=== PATIENT | female | born 1930 | race Caucasian/White ===

== ENCOUNTER 2016-11-25 08:19 | Outpatient (CLI) | payer MEDICARE ==
[~2016-11-25] VITALS: Ht 165.1 cm; Wt 57.7 kg
--- NOTE | ~2016-11-25 | HEMODYNAMI ---
PATIENT:JUDAH CARVAJAL MEDICAL RECORD: [id number] : [birth year] LOCATION:[facility] ADMISSION DATE: 11/25/16 Generatedon:11/25/201613:07 Patient name: JUDAH CARVAJAL Patient #: [id number] SSN: DO B: 1930 Date of study: 11/25/2016 Page: Of Hemodynamic Procedure Report Patient Data Patient Demographics Procedure consent was obtained First Name: JUDAH Gender: Female Last Name: WEI : 1930 [facility] Initial: C Age: 86 year(s) Patient #: [id number] Race: Unknown Additional ID: [id number] Contact details [address]: [address] [place] [address] [id number] State: [place] City: [place] Zip code: [address] Admission Admission Data Admission Date: 11/25/2016 Admission Time: 8:19 Procedure Procedure Types Cath Procedure Diagnostic Procedure LHC [facility] w/Coronaries PCI Procedure Coronary Stent Initial Miscellaneous Procedures Moderate Sedation up to 15 minutes Procedure Description Procedure Date Procedure Date: 11/25/2016 Procedure Start Time: 12:46 Procedure End Time: 13:07 Procedure Staff Name Function Lito Merchant MD Performing Physician Ace Forde RT Scrub Tawanna Rico RN Nurse Jayme Hilario RT Monitor David Torres RN Assembler Installer General Procedure Data Cath Procedure Fluoroscopy Diagnostic fluoroscopy Total fluoroscopy Time: 4.2 time: 4.2 min min Diagnostic fluoroscopy Total fluoroscopy dose: 356 dose: 356 mGy mGy Contrast Material Contrast Material Type Amount (ml) Isovue 300 102 Entry Location Entry Primary Successful Side Size Upsize Upsize Entry Closure Succes sful Closure Location (Fr) 1 (Fr) 2 (Fr) Remarks Device Remarks Femoral Right 5 Fr 6 Fr 6 Fr Exoseal artery Short Short Estimated blood loss: 10 ml Diagnostic catheters Device Type Used For End Catheter Placement Cordis 5Fr Pigtail Procedure Catheter (MP) Cordis 5Fr JL 4.0 Procedure Catheter (MP) Cordis 5Fr 3DRC Catheter Procedure (MP) Procedure Complications No complications Procedure Medications Medication Administration Route Dosage Oxygen NC 2 l/min Heparin Flush Bag added to field 2 bags (1000units/500ml NS) Lidocaine 2% added to field 20 Versed I.V. 1 mg Fentanyl I.V. 50 mcg Versed I.V. 1 mg Fentanyl I.V. 50 mcg Heparin Bolus I.V. 4000 units Hemodynamics Rest Heart Rate: 58 (bpm) Snapshots Pre Cath Intra NCS Post Cath Vital Signs Time Heart Resp SPO2 NIBP (mmHg) Rhythm Pain Sedation Rate (ipm) (%) Status Level (bpm) 12:35:19 79 20 96 155/74(117) NSR 0 (11) 10(A) , No pain 12:40:19 56 14 98 Measuring NSR 0 (11) 10(A) , No pain 12:40:53 60 18 97 150/71(93) NSR 0 (11) 10(A) , No pain 12:45:18 57 18 96 143/63(102) NSR 0 (11) 10(A) , No pain 12:49:34 61 16 98 138/77(116) NSR 0 (11) 9(A) , No pain 12:53:51 60 18 95 138/65(120) NSR 0 (11) 9(A) , No pain 12:58:08 62 19 96 122/69(105) NSR 0 (11) 9(A) , No pain 13:02:17 60 19 96 124/70(112) NSR 0 (11) 9(A) , No pain 13:06:29 62 9 93 135/68(111) NSR 0 (11) 9(A) , No pain Medications Time Medication Route Dose Verified Delivered Reason Notes Effectiveness by by 12:38:02 Oxygen NC 2 Lito Tawanna Per physician l/min Shonda Rico RN 12:38:11 Heparin Flush added 2 Lito Morse used for Bag to bags Shonda Merchant MD procedure (1000units/500ml field NS) 12:38:18 Lidocaine 2% added 20ml Lito Morse used for to vial Shonda Merchant MD procedure field 12:41:21 Versed I.V. 1 mg Lito Tawanna for sedation Shonda Rico RN 12:41:34 Fentanyl I.V. 50 Lito Tawanna for sedation mcg Tauth MD Jacky RN 12:43:59 Versed I.V. 1 mg Lito Tawanna for sedation Shonda Rico RN 12:44:07 Fentanyl I.V. 50 Lito Tawanna for sedation mcg Shonda Rico RN 12:54:06 Heparin Bolus I.V. 4000 Lito Stacy for dose units Shonda Rico RN anticoagulation verified wt dr merchant Procedure Log Time Note 12:15:48 David Torres RN sent for patient. Start room use. 12:24:43 ACC Patient presents with Stable Angina CCS Anginal Class 2--Slight limitation of ordinary activity. 12:24:45 Diagnostic Cath status Elective 12:25:03 Time tracking: Regular hours 12:25:08 Plan of Care:Hemodynamics will remain stable., Cardiac rhythm will remain stable., Comfort level will be maintained., Respiratory function will remain adequate., Patient/ family verbilizes understanding of procedure., Procedure tolerated without complication., Recovers from procedure without complications.. 12:27:45 H&P Date Dictated: 11/18/2016 Within 30 days and on chart., H&P Addendum completed by physician on day of procedure. (MUST COMPLETE FOR ALL OUTPATIENTS). 12:31:34 Patient received from Pre/Post Procedure Room to CCL 2 Alert and oriented. Tansferred to table in Supine position. 12:31:35 Warm blankets applied, and moon hugger turned on for patient comfort. 12:31:36 Correct patient and procedure confirmed by team. 12:31:37 Signed procedure consent form obtained from patient. 12:31:38 ECG and BP/O2 sat monitors applied to patient. 12:33:56 Vital chart was started 12:38:02 Oxygen 2 l/min NC was administered by Tawanna Rico RN; Per physician; 12:38:11 Heparin Flush Bag (1000units/500ml NS) 2 bags added to field was administered by Lito Merchant MD; used for procedure; 12:38:18 Lidocaine 2% 20ml vial added to field was administered by Lito Merchant MD; used for procedure; 12:40:21 Baseline sample Acquired. 12:40:24 Rhythm: sinus bradycardia 12:40:26 Full Disclosure recording started 12::27 Pre-procedure instructions explained to patient. 12:40:27 Pre-op teaching completed and patient verbalized understanding. 12:40:29 Family in patients room. 12:40:30 Patient NPO since Midnight. 12:40:31 Is the patient allergic to Iodine/contrast media? No. 12:40:36 Is patient on blood thinner?Yes 12:40:38 ACC The patient was administered the following blood thiners within the last 24 hours: ACCPlavix 12:40:41 Patient diabetic? No. 12:40:43 Patient not . Patient is over age 55. 12:40:46 Previous problem with sedation/anesthesia? No ? 12:40:47 Snore? Yes 12:40:48 Sleep apnea? Yes 12:40:48 Deviated septum? No 12:40:49 Opens mouth fully? Yes 12:40:50 Sticks out tongue? Yes 12:40:52 Airway obstruction? No ? 12:40:53 Dentures? No ? 12:40:57 Pre procedure: right dorsailis pedis pulse 1+ Palpable, but thready & weak; easily obliterated 12:40:59 Patient pain scale 0/10 ?. 12:41:04 IV patent on arrival in left forearm with 0.9% NaCl at [facility]. 12:41:07 Lab results completed and on chart. 12:41:11 Right groin area was prepped with chlora-prep and draped in sterile fashion 12:41:12 Alarms reviewed by R. N. 12:41:12 Sharps counted by scrub and verified by R.N. 12:41:13 --------ALL STOP TIME OUT------ 12:41:13 Final Timeout: patient, procedure, and site verified with staff and physician. All members of the team are in agreement. 12:41:15 Right groin site verified by team. 12:41:18 Physical assessment completed. ASA score P 2 - A patient with mild systemic disease as per Lito Merchant MD. 12:41:21 Versed 1 mg I.V. was administered by Tawanna Rico RN; for sedation; 12:41:21 Sedation plan: IV Moderate Sedation Versed, Fentanyl 12:41:34 Fentanyl 50 mcg I.V. was administered by Tawanna Rico RN; for sedation; 12:41:36 Use device set Femoral Dx 12:41:38 Tegaderm 4 x 4 opened to sterile field. 12:41:38 Acist Hand Control opened to sterile field. 12:41:39 Acist Manifold opened to sterile field. 12:41:40 Acist Syringe opened to sterile field. 12:41:41 Bag Decanter opened to sterile field. 12:41:41 Medline Cath Pack opened to sterile field. 12:41:42 Terumo 5Fr [place] Sheath opened to sterile field. 12:41:42 St Mamadou 260cm J .035 wire opened to sterile field. 12:41:52 Diagnostic Infinity 5Fr Multipack catheter opened to sterile field. 12:43:59 Versed 1 mg I.V. was administered by Tawanna Rico RN; for sedation; 12:44:07 Fentanyl 50 mcg I.V. was administered by Tawanna Rico RN; for sedation; 12:44:16 Zero performed for pressure channel P1 12:46:33 Procedure started. 12:46:37 Local anesthetic to right femoral artery with Lidocaine 2% by Lito Merchant MD.INITIAL ACCESS ONLY 12:47:10 A 5 Fr sheath was inserted into the Right Femoral artery 12:47:33 A Cordis 5Fr Pigtail Catheter (MP) was advanced over the wire and used for Procedure. 12:48:34 LV angiography performed. 12:48:35 LV gram done using PRUITT 12:48:40 EF : 60 % 12:48:44 Injector settings: Ml/sec: 10, Volume: 20, 12:48:46 Catheter removed. 12:48:52 A Cordis 5Fr JL 4.0 Catheter (MP) was advanced over the wire and used for Procedure. 12:49:35 LCA angiography performed. 12:50:19 Catheter removed. 12:50:23 A Cordis 5Fr 3DRC Catheter (MP) was advanced over the wire and used for Procedure. 12:50:52 RCA angiography performed. 12:50:54 Catheter removed. 12:51:09 Terumo 6Fr [place] Sheath opened to sterile field. 12:51:10 Byrnes Whisper J 300cm 0.014 guide wire opened to sterile field. 12:51:11 [employer] BasixCompak Inflation Kit opened to sterile field. 12:53:07 Exinda Launcher 6Fr AR 2.0 guide catheter opened to sterile field. 12:53:17 Sheath upsized to a 6 Fr Short. 12:53:46 6 Fr AR 2 guide catheter was inserted over the wire 12:54:06 Heparin Bolus 4000 units I.V. was administered by Tawanna Rico RN; for anticoagulation; dose verified wt dr merchant 12:54:15 Guide catheter removed, unable to torque guide catheter due to tortuous aorta. 12:54:21 Terumo 6Fr [place] Destination Sheath opened to sterile field. 12:54:50 Sheath exchanged to 6 fr Destination. 12:55:10 6 fr AR 2 guide catheter readvanced. 12:56:44 Whisper wire advanced. 12:56:53 ACC PCI Site: pRCA has 75% stenosis. 12:56:55 ACC Pre-intervention JUVE Flow is 3. 12:56:57 Wire advanced across lesion. 12:58:16 Inflation Number: 1 A Biofreedom 3.0 x 18 stent (No Cost Implant) was prepped and advanced across the Prox RCA. The stent was deployed at 13 MERLENE for 0:10 (min:sec). 12:59:05 ACC Post-intervention JUVE Flow is 3. 12:59:06 Stent catheter was removed intact over wire. 12:59:07 Wire removed. 12:59:07 Guide catheter removed. 12:59:15 Sheath upsized to a 6 Fr Short. 12:59:33 Cordis 6Fr Exoseal opened to sterile field. 12:59:43 Sheath removed intact; hemostasis achieved with Exoseal to the Right Femoral artery. 12:59:44 Procedure ended.(Physican Out) 13:00:16 Fluoroscopy time 04.20 minutes. 13:00:19 Fluoroscopy dose: 356 mGy 13:00:19 Flurop Dose total: 356 13:00:25 Contrast amount:Isovue 300 102ml. 13:00:27 Sharps counted by scrub and verified by R.N. 13:00:28 Insertion/operative site no bleeding no hematoma. 13:00:31 Post-op/insertion site Right Femoral artery dressed using a 4 x 4 and Tegaderm. 13:00:32 Post Procedure Pulses reassessed and unchanged 13:00:34 Post-procedure physical assessment completed. ASA score P 2 - A patient with mild systemic disease as per Lito Merchant MD. 13:00:36 Post procedure rhythm: unchanged. 13:00:41 Estimated blood loss: 10 ml 13:00:42 Post procedure instruction explained to patient.Patient verbalizes understanding. 13:00:43 Patient needs reinforcement of post procedure teaching. 13:01:06 Procedure type changed to Cath procedure, Diagnostic procedure, LHC, LHC w/Coronaries, PCI procedure, Coronary Stent Initial, Miscellaneous Procedures, Moderate Sedation up to 15 minutes 13:01:27 Procedure and supply charges have been captured, reviewed, submitted and are correct. 13:01:29 Procedure Complication : No complications 13:07:22 Vital chart was stopped 13:07:22 See physician's report for complete and final results. 13:07:26 Report given to Pre/Post Procedure Room. 13:07:28 Patient transfered to Pre/Post Procedure Room with Stretcher. 13:07:31 Procedure ended. 13:07:31 Full Disclosure recording stopped 13:07:36 End room use (Document Last) Intervention Summary Intervention Notes Time ActionType Lesion and Equipment Action# Pressure Duration Attributes Used 12:58:16 Place stent Prox RCA Biofreedom 1 13 00:10 3.0 x 18 stent (No Cost Implant) Device Usage Item Name Manufacture Quantity Catalog Hospital Part Current Minimal Lot# / Number Charge Number Stock Stock Serial# Code Tegaderm 4 3M 1 [id number] 739689 418658 5 x 4 Acist Hand Acist 1 64942 515998 265770 102238 5 Control [employer] Inc Acist Acist 1 12386 485275 790481 565180 5 Manifold Medical Systems Inc Acist Acist 1 39063 203256 219031 660553 20 Syringe Medical Systems Inc Bag Microtek 1 2002S 385491 17757 956186 5 Decanter Medical Inc. Medline Cardinal 1 [id number] 910123 09839 637408 5 Cath Pack Health Terumo 5Fr Terumo 1 [id number] 259541 035427 880462 [address] Mamadou 1 495863 128838 083916 377427 30 260cm J .035 wire Diagnostic Cardinal 1 [id number] 732684 18378 213375 30 Infinity Health 5Fr Multipack catheter Cordis 5Fr Cardinal 1 [id number] 5 Pigtail Health Catheter (MP) Cordis 5Fr Cardinal 1 534615 5 JL 4.0 Health Catheter (MP) Cordis 5Fr Cardinal 1 526978 5 3DRC Health Catheter (MP) Terumo 6Fr Terumo 1 [id number] 626143 503233 577684 40 [place] Sheath Byrnes Byrnes 1 [id number] 175894 563949 891274 5 Whisper J Vascular 300cm 0.014 guide wire Merit Merit 1 [id number] 826629 798507 179291 15 [employer] Medical Inflation Kit Medtronic Medtronic 1 [id number] 277660 92601 166519 1 Launcher 6Fr AR 2.0 guide catheter Terumo 6Fr Terumo 1 [id number] 595154 37449 831425 5 [place] Destination Sheath Biofreedom Biosensors 1 [facility]2-3018 286070 717533 5 [id number] 3.0 x 18 [place] SA stent (No Cost Implant) Cordis 6Fr Cardinal 1 [id number] 187583 726321 708145 10 [facility] Metaresolver Signature Audit [place] Stage Time Signature Unsigned Intra-Procedure 11/25/2016 Jayme Hilario 1:07:50 PM RT(R) Signatures Monitor : Jayme Hilario RT Signature : Date : Time : [place] [id number] [place] [address]
[~2016-11-25 08:19] MED LIST: BAYER CHEWABLE81 MG PO; BENICAR40 MG PO; CALCIUM 600+D T1 TA1 PO; COVERA-HS240 MG PO; CRANBERRY; LEXAPRO20 MG PO; MULTI-DAY VITAM1 TAB; PLAVIX75 MG PO
[2016-11-25] MEDS ORDERED: FUROSEMIDE20 MG PO (08:58)
[2016-11-25] MEDS ORDERED: KLOR-CON 1010 MEQ PO (08:58)
[2016-11-25] MEDS ORDERED: VITAMIN D3400 UNI1 PO (08:59)
[2016-11-25] MEDS ORDERED: BIOTIN5 MG PO (09:00)
[2016-11-25 09:15] VITALS: BP 167/71; Ht 165.1 cm; Wt 57.7 kg
[2016-11-25 09:23] LABS: BASOPHILS 0.4 % (0-2); EOSINOPHILS 1.9 % (0-7); HEMATOCRIT 42.7 % (36.0-48.0); LYMPHOCYTES 28.3 % (15-50); MCH 31.7 pg (26.0-34.0); MCHC 32.8 g/dL (31.0-37.0); MCV 96.6 fL (80.0-100.0); MEAN PLATELET VOLUME 10.2 fL (7.4-10.4); MONOCYTES 7.8 % (2-11); NEUTROPHILS 61.6 % (40-80); PLATELET COUNT 180 10x3/uL (130-400); RBC 4.42 10x6/uL (4.00-5.40); RDW 14.6 % (11.5-14.5); WBC 4.6 10x3/uL (4.8-10.8)
[2016-11-25 09:53] LABS: CALC OSMOLALITY 289 mosm/kg (275-300); CALCIUM 9.4 mg/dL (8.5-10.1); CARBON DIOXIDE 28.7 mmol/L (21.0-32.0); CHLORIDE - SERUM 107 mmol/L (98-107); GLUCOSE 102 mg/dL (74-106); POTASSIUM - SERUM 3.9 mmol/L (3.5-5.1); SODIUM 145 mmol/L (136-145); UREA NITROGEN 15 mg/dL (7-18); eGFR NON AFRICAN AMERICAN 55 mL/min (90-120)
[2016-11-25 09:54] LABS: CREATINE KINASE 1068 UL (21-215); TROPONIN-I < 0.017 ng/mL (0.000-0.060)
--- NOTE | 2016-11-25 13:30 | NUR ---
RIGHT GROIN CDI, SOFT TO TOUCH, NO HEMATOMA OR BLEEDING NOTED
--- NOTE | 2016-11-25 14:00 | NUR ---
NO CHANGES IN RIGHT GROIN, VSS, AT SIDE
--- NOTE | 2016-11-25 16:45 | NUR ---
IV D'C WITH CATH TIP INTACT, WRITTEN AND VERBAL INSTRUCTIONS GIVEN AND UNDERSTOOD. RIGHT GROIN CDI, NO HEMATOMA OR BLEEDING AT SITE
--- NOTE | 2016-11-27 11:01 | OP ---
PATIENT NAME: JUDAH CARVAJAL MEDICAL RECORD: [id number] :[birth year] LOCATION:[facility] ADMISSION DATE: SURGEON: VENANCIO RICHARDS MD OPERATION DATE: 11/25/16 PROCEDURES: 1. Percutaneous transluminal coronary angioplasty stent right coronary artery. 2. Left heart catheterization. 3. Selective coronary angiography. 4. Left ventriculogram. INDICATION: 1. Angina. 2. Coronary artery disease. PROCEDURE IN DETAIL: After informed consent was obtained and after detailed explanation of risks, benefits, as well as alternative therapies, the patient elected to proceed with angiogram and angioplasty. The right radial area was prepped and draped in a normal sterile fashion. The right radial artery was cannulated via modified Seldinger technique with placement of 6-[place] sheath. All catheters exchanged through this sheath. FINDINGS: The left ventriculogram was performed in standard 30 degree PRUITT view, reveals good cardiac wall motion throughout all segments. Overall ejection fraction 60%. SELECTIVE CORONARY ANGIOGRAPHY: 1. The left main is with no significant angiographic disease. 2. The left anterior descending has a previously placed stent that is widely patent with no significant restenosis. No disease elsewise throughout the left anterior descending or its branches. 3. The left circumflex shows mild irregularities but no flow-limiting stenosis. 4. The right coronary artery has a 70-75% stenosis proximally followed by a previously placed stent. The previously placed stent is widely patent. PTCA STENT OF THE RIGHT CORONARY ARTERY: The stent used was a 3.0 X 18 millimeter BioFreedom taken to 15 atmospheres. This was a 15 millimeter lesion in a 3.0 vessel. JUVE 3 flow before and after the intervention. 0% residual stenosis after the intervention. OVERALL IMPRESSION: Successful percutaneous transluminal coronary angioplasty stent of the right coronary artery going from 75% initial stenosis to 0% residual stenosis. VENANCIO RICHARDS MD at 1101 CC: [id number] DICTATION DATE: 11/25/16 1400 MACHINE OPERATOR PACKAGING: DM 11/25/16 1544 DEP CLI 11/25/16 [facility] [address] [id number]
== END 2016-11-25 17:00 | disposition home or self-care (01) ==
LOC: D.CATH 08:19
PROVIDERS: Internal Medicine Interventional Cardiology
DX: I25.119 Atherosclerotic heart disease of native coronary artery with unspecified angina pectoris (principal); Z01.812 Encounter for preprocedural laboratory examination; Z00.6 Encounter for examination for normal comparison and control in clinical research program
CPT/HCPCS: 93458; C9600